=== PATIENT | female | born 1970 | race Caucasian/White ===

== ENCOUNTER 2017-08-13 10:50 | Emergency (ER) | payer BC ==
[2017-08-13 10:55] VITALS: TEMP 97.8
[2017-08-13 11:48] LABS: Basophils % (A) 0 %; Eosinophils # (A) 0.1 k/uL (0-0.7); Eosinophils % (A) 2 %; HCT 35.7 % (34.0-46.0); HGB 12.3 gm/dL (11.4-16.0); Lymphocytes # (A) 1.1 k/uL (1.0-4.8); Lymphocytes % (A) 34 %; MCHC 34.4 g/dL (31.0-37.0); MCV 96.1 fL (80.0-100.0); Mean Platelet Volume 7.5; Monocytes # (A) 0.2 k/uL (0-1.0); Monocytes % (A) 6 %; Neutrophils # (A) 1.8 k/uL (1.3-7.7); Neutrophils % (A) 56 %; Platelet Count 223 k/uL (150-450); RBC 3.71 m/uL (3.80-5.40); WBC 3.2 k/uL (3.8-10.6)
[2017-08-13] MEDS ORDERED: hydrALAZINE HCL 20 MG/ML 1 ML VIAL IVP STA (11:49)
[2017-08-13] MEDS ORDERED: LISINOPRIL-HCTZ 10-12.5 MG 1 EACH TAB PO STA (11:49)
--- NOTE | 2017-08-13 11:52 | ED ---
General Adult HPI - General Chief complaint: Chest Pain Stated complaint: Chest pain Time Seen by Provider: 08/13/17 10:58 Source: patient, RN notes reviewed, old records reviewed Mode of arrival: wheelchair Limitations: no limitations - History of Present Illness Initial comments: 46-year-old female history of hypertension presents for evaluation of left- sided chest pain. Pain begins in the front of her chest, travels to her back. She's had 5 episodes since 9 AM this morning. Each episode lasting 30 seconds to 1 minute. Pain is sharp and severe in nature. Patient has had these episodes in the past as recently as several weeks ago. She has no history of coronary artery disease. She complains of no calf tenderness or leg swelling. No abdominal pain. No nausea vomiting. No fever or cough. - Related Data Home Medications Medication Instructions Recorded Confirmed ALPRAZolam [Xanax] 0.25 mg PO HS PRN 10/05/15 08/13/17 Lisinopril-Hctz 10-12.5 mg 1 tab PO HS 08/13/17 08/13/17 [Zestoretic 10-12.5] Naproxen Sodium [Aleve] 220 mg PO DAILY PRN 08/13/17 08/13/17 Ondansetron HCl [Zofran] 8 mg PO Q8H PRN 08/13/17 08/13/17 Previous Rx's Medication Instructions Recorded Ibuprofen [Motrin] 600 mg PO Q8HR PRN #24 tab 08/13/17 Allergies Allergy/AdvReac Type Severity Reaction Status Date / Time No Known Allergies Allergy Verified 10/06/15 13:19 Review of Systems ROS Statement: Those systems with pertinent positive or pertinent negative responses have been documented in the HPI. ROS Other: All systems not noted in ROS Statement are negative. Past Medical History Past Medical History: Hypertension Additional Past Medical History / Comment(s): "heart problems" History of Any Multi-Drug Resistant Organisms: None Reported Past Surgical History: Section, Hysterectomy Past Anesthesia/Blood Transfusion Reactions: Postoperative Nausea & Vomiting ( PONV) Past Psychological History: No Psychological Hx Reported Smoking Status: Never smoker Past Alcohol Use History: Occasional Past Drug Use History: None Reported - Past Family History Mother Family Medical History: Myocardial Infarction ([place]) Additional Family Medical History / Comment(s): [place] at 49 and bypass at age 53. Brother(s) Family Medical History: Myocardial Infarction ([place]) Additional Family Medical History / Comment(s): [place] at age 29 General Exam Limitations: no limitations General appearance: alert, in no apparent distress Head exam: Present: atraumatic, normocephalic Eye exam: Present: normal appearance, PERRL ENT exam: Present: normal exam Neck exam: Present: normal inspection. Absent: tenderness, meningismus Respiratory exam: Present: normal lung sounds bilaterally. Absent: respiratory distress, wheezes, chest wall tenderness Cardiovascular Exam: Present: regular rate, normal rhythm GI/Abdominal exam: Present: soft. Absent: distended, tenderness, guarding Extremities exam: Present: normal inspection, normal capillary refill, other ( Bilateral DP pulses 2+). Absent: pedal edema Neurological exam: Present: alert, oriented X3, CN II-XII intact. Absent: motor sensory deficit Psychiatric exam: Present: normal affect, normal mood Skin exam: Present: warm, dry, intact. Absent: cyanosis, diaphoretic, erythema Course Vital Signs 08/13/17 08/13/17 08/13/17 10:54 11:20 11:55 Temperature 97.8 F Pulse Rate 84 76 Pulse Rate [ 89 Right Pulse Oximetery] Respiratory 18 18 Rate Blood Pressure 179/105 169/108 O2 Sat by Pulse 100 99 Oximetry 08/13/17 08/13/17 08/13/17 12:35 12:44 12:59 Temperature Pulse Rate 89 89 75 Pulse Rate [ Right Pulse Oximetery] Respiratory 16 18 19 Rate Blood Pressure 172/99 185/107 172/109 O2 Sat by Pulse 95 100 97 Oximetry EKG Findings - EKG Comments: EKG Findings:: EKG shows normal sinus rhythm, Q wave in leads 3 and aVF, may represent previous inferior infarct, no acute ischemic changes. No ST segment elevation or depression, ventricular rate 77, ND interval 160, QRS duration 88, QTC 427 Medical Decision Making - Medical Decision Making 46 year old female presenting with chest pain which is atypical for cardiac causes. She is mildly hypertensive on initial evaluation, she does receive CT angiography to evaluate both for pulmonary embolism and dissection. CT angiography is negative for PE or dissection, there is interstitial granulomatous changes. This finding is discussed with the patient. She will follow-up with her primary care physician and systems qa analyst regarding this finding. Laboratory studies reveal white blood cell count mildly decreased at 3.2, normal x-rays, negative troponin, normal chest x-ray. Diagnose: Chest pain, granulomatous disease of the lung - Lab Data Result diagrams: 08/13/17 11:28 08/13/17 11:28 Lab Results 08/13/17 08/13/17 08/13/17 Range/Units 11:28 11:28 11:28 WBC 3.2 L (3.8-10.6) k/uL RBC 3.71 L (3.80-5.40) m/uL Hgb 12.3 (11.4-16.0) gm/dL Hct 35.7 (34.0-46.0) % MCV 96.1 (80.0-100.0) fL MCH 33.0 (25.0-35.0) pg MCHC 34.4 (31.0-37.0) g/dL RDW 13.0 (11.5-15.5) % Plt Count 223 (150-450) k/uL Neutrophils % 56 % Lymphocytes % 34 % Monocytes % 6 % Eosinophils % 2 % Basophils % 0 % Neutrophils # 1.8 (1.3-7.7) k/uL Lymphocytes # 1.1 (1.0-4.8) k/uL Monocytes # 0.2 (0-1.0) k/uL Eosinophils # 0.1 (0-0.7) k/uL Basophils # 0.0 (0-0.2) k/uL PT (9.0-12.0) sec INR (<1.2) APTT (22.0-30.0) sec D-Dimer (<0.60) mg/L FEU Sodium 139 (137-145) mmol/L Potassium 4.3 (3.5-5.1) mmol/L Chloride 102 (98-107) mmol/L Carbon Dioxide 28 (22-30) mmol/L Anion Gap 9 mmol/L BUN 13 (7-17) mg/dL Creatinine 0.70 (0.52-1.04) mg/dL Est GFR (MDRD) Af Amer >60 (>60 ml/min/1.73 sqM) Est GFR (MDRD) Non-Af >60 (>60 ml/min/1.73 sqM) Glucose 102 H (74-99) mg/dL Calcium 9.6 (8.4-10.2) mg/dL Magnesium 1.7 (1.6-2.3) mg/dL Total Bilirubin 0.4 (0.2-1.3) mg/dL AST 38 H (14-36) U/L ALT 47 (9-52) U/L Alkaline Phosphatase 60 (38-126) U/L Total Creatine Kinase 88 (30-135) U/L CK-MB (CK-2) <0.2 (0.0-2.4) ng/mL CK-MB (CK-2) Rel Index Troponin I <0.012 (0.000-0.034) ng/mL NT-Pro-B Natriuret Pep pg/mL Total Protein 7.2 (6.3-8.2) g/dL Albumin 4.3 (3.5-5.0) g/dL Lipase 148 (23-300) U/L 08/13/17 08/13/17 Range/Units 11:28 11:28 WBC (3.8-10.6) k/uL RBC (3.80-5.40) m/uL Hgb (11.4-16.0) gm/dL Hct (34.0-46.0) % MCV (80.0-100.0) fL MCH (25.0-35.0) pg MCHC (31.0-37.0) g/dL RDW (11.5-15.5) % Plt Count (150-450) k/uL Neutrophils % % Lymphocytes % % Monocytes % % Eosinophils % % Basophils % % Neutrophils # (1.3-7.7) k/uL Lymphocytes # (1.0-4.8) k/uL Monocytes # (0-1.0) k/uL Eosinophils # (0-0.7) k/uL Basophils # (0-0.2) k/uL PT 9.9 (9.0-12.0) sec INR 1.0 (<1.2) APTT 24.2 (22.0-30.0) sec D-Dimer 0.32 (<0.60) mg/L FEU Sodium (137-145) mmol/L Potassium (3.5-5.1) mmol/L Chloride (98-107) mmol/L Carbon Dioxide (22-30) mmol/L Anion Gap mmol/L BUN (7-17) mg/dL Creatinine (0.52-1.04) mg/dL Est GFR (MDRD) Af Amer (>60 ml/min/1.73 sqM) Est GFR (MDRD) Non-Af (>60 ml/min/1.73 sqM) Glucose (74-99) mg/dL Calcium (8.4-10.2) mg/dL Magnesium (1.6-2.3) mg/dL Total Bilirubin (0.2-1.3) mg/dL AST (14-36) U/L ALT (9-52) U/L Alkaline Phosphatase (38-126) U/L Total Creatine Kinase (30-135) U/L CK-MB (CK-2) (0.0-2.4) ng/mL CK-MB (CK-2) Rel Index Troponin I (0.000-0.034) ng/mL NT-Pro-B Natriuret Pep 188 pg/mL Total Protein (6.3-8.2) g/dL Albumin (3.5-5.0) g/dL Lipase (23-300) U/L Disposition Clinical Impression: Chest pain Disposition: HOME SELF-CARE Condition: Good Instructions: Chest Pain (ED), How Your Lungs Work (ED) Prescriptions: Ibuprofen [Motrin] 600 mg PO Q8HR PRN #24 tab PRN Reason: Pain Referrals: Tim Hernández MD [Primary Care Provider] - 1-2 days Jacquelyn Ruiz MD [STAFF PHYSICIAN] - 1-2 days Time of Disposition: 13:33
[2017-08-13 12:00] LABS: ALT 47 U/L (9-52); AST 38 U/L (14-36); Albumin 4.3 g/dL (3.5-5.0); Alkaline Phosphatase 60 U/L (38-126); Anion Gap 9 mmol/L; Blood Urea Nitrogen 13 mg/dL (7-17); Calcium 9.6 mg/dL (8.4-10.2); Carbon Dioxide 28 mmol/L (22-30); Chloride 102 mmol/L (98-107); Glucose 102 mg/dL (74-99); Lipase 148 U/L (23-300); Magnesium 1.7 mg/dL (1.6-2.3); Potassium 4.3 mmol/L (3.5-5.1); Sodium 139 mmol/L (137-145); Total Bilirubin 0.4 mg/dL (0.2-1.3); Total Protein 7.2 g/dL (6.3-8.2)
[2017-08-13 12:03] LABS: D-Dimer 0.32 mg/L FEU (<0.60)
[2017-08-13 12:08] LABS: Partial Thromboplastin Time 24.2 sec (22.0-30.0); Prothrombin Time 9.9 sec (9.0-12.0)
[2017-08-13 12:09] LABS: Creatine Kinase 88 U/L (30-135)
--- NOTE | 2017-08-13 12:11 | XR ---
EXAMINATION TYPE: XR chest 2V DATE OF EXAM: 08/13/2017 COMPARISON: Prior chest x-ray 10/05/2015 HISTORY: Chest pain TECHNIQUE: Frontal and lateral views of the chest are obtained on 3 images. FINDINGS: There is no focal air space opacity, pleural effusion, or pneumothorax seen. The cardiac silhouette size is within normal limits. There are overlying cardiac leads. The osseous structures a re intact. IMPRESSION: No acute cardiopulmonary process.
[2017-08-13] MEDS ORDERED: RX INFO: IV CONTRAST WAS GIVEN 1 EACH MISC MISCELLANE PRN (12:14)
[2017-08-13 12:23] LABS: Creatine Kinase MB <0.2 ng/mL (0.0-2.4); Troponin I <0.012 ng/mL (0.000-0.034)
--- NOTE | 2017-08-13 13:18 | CT ---
EXAMINATION TYPE: CT angio chest DATE OF EXAM: 08/13/2017 COMPARISON: Chest x-ray 08/13/2017 HISTORY: Left sided chest pain with shortness of breath CT DLP: 175.5 mGycm Automated exposure control for dose reduction was used. CONTRAST: CTA scan of the thorax is performed with IV Contrast, patient injected with 100 mL of Omnipaque 350, pulmonary embolism protocol. MIP images are created and reviewed. 3D reconstructed images are creat ed on an independent workstation and reviewed. FINDINGS: LUNGS: The lungs are remarkable for some interstitial nodularity, minimal dependent atelectatic carias es are present. Nodule present on axial image 46e adjacent to right upper lobe pulmonary artery, add itional nodule present adjacent to the left pulmonary artery on axial image 52 There is no pleural ef fusion or pneumothorax seen. The tracheobronchial tree is patent. AORTA: No additional significant abnormality is seen. MEDIASTINUM: There is satisfactory enhancement of the pulmonary artery and its branches, there is no CT evidence for pulmonary embolism. There are no greater than 1 cm hilar or mediastinal lymph nodes. No pericardial effusion is seen. OTHER: No additional significant abnormality is seen. IMPRESSION: CONSIDER GRANULOMATOUS DISEASE SUCH SARCOID, FOLLOW-UP RECOMMENDED. NO EVIDENT PULMONARY EMBOLISM.
[2017-08-13 14:21] VITALS: BP 148/92; PULSE 75; RESP 16
== END 2017-08-13 14:21 | disposition home or self-care (01) ==
LOC: EC 10:50
DX: R07.9 Chest pain, unspecified (principal); I10 Essential (primary) hypertension; Z79.899 Other long term (current) drug therapy
CPT/HCPCS: 99285; 36415; 93005; 85379; 83880; 80053; 82550; 82553; 83690; 83735; 84484; 85025; 85610; 85730; 71046; 71275; Q9967

== ENCOUNTER → 2017-08-30 | Outpatient (CLI) | payer BC ==
[2017-08-30 15:30] LABS: ALT 33 U/L (9-52); AST 27 U/L (14-36); Albumin 4.4 g/dL (3.5-5.0); Alkaline Phosphatase 58 U/L (38-126); Anion Gap 8 mmol/L; Blood Urea Nitrogen 12 mg/dL (7-17); Calcium 9.4 mg/dL (8.4-10.2); Carbon Dioxide 29 mmol/L (22-30); Chloride 99 mmol/L (98-107); Glucose 103 mg/dL (74-99); Potassium 3.9 mmol/L (3.5-5.1); Sodium 136 mmol/L (137-145); Total Bilirubin 0.5 mg/dL (0.2-1.3)
== END | disposition home or self-care (01) ==
LOC: LABWHC1 14:45
PROVIDERS: ATTEND Internal Medicine Critical Care Medicine
DX: F41.9 Anxiety disorder, unspecified (principal); K90.0 Celiac disease; D86.9 Sarcoidosis, unspecified
CPT/HCPCS: 36415; 80053; 82164; 85652

== ENCOUNTER → 2020-04-11 | Outpatient (CLI) | payer BC ==
--- NOTE | 2020-04-12 11:11 | MM ---
Reason for exam: screening (asymptomatic). Last mammogram was performed 1 year and 2 months ago. History: Patient is postmenopausal. Family history of breast cancer in father at age 38. Physical Findings: A clinical breast exam by your physician is recommended on an annual basis and results should be correlated with mammographic findings. MG Screening Mammo w CAD Bilateral CC and MLO view(s) were taken. Prior study comparison: January 24, 2019, bilateral MG screening mammo w CAD. May 11, 2014, bilateral MG foundation screening mammo. The breast tissue is heterogeneously dense. This may lower the sensitivity of mammography. No significant changes when compared with prior studies. ASSESSMENT: Negative, BI-RAD 1 RECOMMENDATION: Routine screening mammogram of both breasts in 1 year.
== END | disposition home or self-care (01) ==
LOC: RADMAMWWP 12:40
PROVIDERS: ATTEND Obstetrics & Gynecology
DX: Z12.31 Encounter for screening mammogram for malignant neoplasm of breast (principal)
CPT/HCPCS: 77067

== ENCOUNTER 2020-09-13 14:57 | Emergency (ER) | payer BC ==
--- NOTE | 2020-09-13 15:20 | ED ---
General Adult HPI - General Chief complaint: Chest Pain Stated complaint: Chest Pain,Abd Pain Time Seen by Provider: 09/13/20 15:04 Source: patient Mode of arrival: ambulatory Limitations: no limitations - History of Present Illness Initial comments: Dictation was produced using TrueView dictation software. please excuse any grammatical, word or spelling errors. This patient was cared for during a federal and state declared state of emergency secondary to Covid 19 Chief Complaint: 49-year-old female past medical history of celiac disease presents to the emergency department for left upper abdominal pain History of Present Illness: 49-year-old female she presents today with acute episode of left upper quadrant abdominal pain. She had a similar episode 2 days ago that lasted for 4 hours patient states the pain is severe causing her significant distress. She denies any fever. She does complain of some nausea. She did having regular bowel movements for the last 4-5 days. She has history of celiac disease that was diagnosed several years ago. Denies any respiratory symptoms. She localizes the pain to the left upper quadrant. She states as a sharp stabbing pain without any exacerbating or mitigating factors. She has a history of section and hysterectomy. No other abdominal surgeries. She does not have a history of alcoholism. She does not report any changes in her symptoms with eating or drinking fluids. She has no history of gastritis or peptic ulcer disease. The ROS documented in this emergency department record has been reviewed and confirmed by me. Those systems with pertinent positive or negative responses have been documented in the HPI. All other systems are other negative and/or no ncontributory. PHYSICAL EXAM: General Impression: Alert and oriented x3, acute distress secondary to pain HEENT: Normocephalic atraumatic, extra-ocular movements intact, pupils equal and reactive to light bilaterally, mucous membranes moist. Cardiovascular: Heart regular rate and rhythm Chest: Able to complete full sentences, no retractions, no tachypnea Abdomen: abdomen soft, mild tenderness to palpation of the left upper quadrant, non-distended, no organomegaly Musculoskeletal: Pulses present and equal in all extremities, no peripheral edema Motor: no focal deficits noted Neurological: CN II-XII grossly intact, no focal motor or sensory deficits noted Skin: Intact with no visualized rashes Psych: Normal affect and mood ED course: 49-year-old female presents emergency department for severe acute onset left upper quadrant abdominal pain. Signs upon arrival are within acceptable limits. Patient's history of celiac disease. Previous surgeries include hysterectomy and section. EKG does not show any signs of ischemia or infarction. EKG interpretation: Ventricular rate 75, normal sinus rhythm,. Interval 156, QRS 86, QTC 433. No SC prolongation, no QTC prolongation, no ST or T-wave changes noted. Overall, this EKG is unremarkable Laboratory evaluation obtained. CBC unremarkable. Coag panel is negative. Metabolic panel is unremarkable. Urinalysis is negative. Troponin is negative. Computed tomography scan of the abdomen and pelvis shows no acute processes. Patient given GI cocktail with no significant improvement. She does however report improvement since the initial onset of her symptoms earlier today. She does still feel some lingering affects. Discussed with patient that the only concern would be that if this is cardiac cause of chest pain. She is warned that her symptoms could represent atypical presentation of acute coronary syndrome. Disposition options were discussed. Recommended the patient have second troponin 3 hours after the initial troponin to evaluate more for cardiac cause of chest pain which she reports that she would rather be discharged and return to the emergency department if possible. Point is unclear what is causing patient's symptoms. She is given GI referral. Patient is given aspirin. Patient tolerating by mouth. Patient will be discharged. - Related Data Home Medications Medication Instructions Recorded Confirmed Lisinopril-Hctz 10-12.5 mg 1 tab PO HS 08/13/17 09/13/20 [Zestoretic 10-12.5] Naproxen Sodium [Aleve] 220 mg PO DAILY PRN 08/13/17 09/13/20 Atorvastatin [Lipitor] 40 mg PO DAILY 09/13/20 09/13/20 Omeprazole [PriLOSEC] 20 mg PO DAILY 09/13/20 09/13/20 traZODone HCL [Desyrel] 50 mg PO HS PRN 09/13/20 09/13/20 Allergies Allergy/AdvReac Type Severity Reaction Status Date / Time No Known Allergies Allergy Verified 09/13/20 16:27 Review of Systems ROS Statement: Those systems with pertinent positive or pertinent negative responses have been documented in the HPI. ROS Other: All systems not noted in ROS Statement are negative. Past Medical History Past Medical History: Hypertension Additional Past Medical History / Comment(s): "heart problems" History of Any Multi-Drug Resistant Organisms: None Reported Past Surgical History: Section, Hysterectomy Past Anesthesia/Blood Transfusion Reactions: Postoperative Nausea & Vomiting (PONV) Past Psychological History: No Psychological Hx Reported Smoking Status: Never smoker Past Alcohol Use History: Occasional Past Drug Use History: None Reported - Past Family History Mother Family Medical History: Myocardial Infarction ([place]) Additional Family Medical History / Comment(s): [place] at 49 and bypass at age 53. Brother(s) Family Medical History: Myocardial Infarction ([place]) Additional Family Medical History / Comment(s): [place] at age 29 General Exam Limitations: no limitations Course Vital Signs 09/13/20 09/13/20 14:58 15:02 Temperature 98.8 F Pulse Rate 83 Respiratory 20 Rate Blood Pressure 165/100 O2 Sat by Pulse 100 Oximetry Medical Decision Making - Lab Data Result diagrams: 09/13/20 15:29 09/13/20 15:28 Lab Results 09/13/20 09/13/20 09/13/20 Range/Units 15:28 15:28 15:28 WBC (3.8-10.6) k/uL RBC (3.80-5.40) m/uL Hgb (11.4-16.0) gm/dL Hct (34.0-46.0) % MCV (80.0-100.0) fL MCH (25.0-35.0) pg MCHC (31.0-37.0) g/dL RDW (11.5-15.5) % Plt Count (150-450) k/uL MPV Neutrophils % % Lymphocytes % % Monocytes % % Eosinophils % % Basophils % % Neutrophils # (1.3-7.7) k/uL Lymphocytes # (1.0-4.8) k/uL Monocytes # (0-1.0) k/uL Eosinophils # (0-0.7) k/uL Basophils # (0-0.2) k/uL PT 10.0 (9.0-12.0) sec INR 0.9 (<1.2) APTT 24.8 (22.0-30.0) sec Sodium 134 L (137-145) mmol/L Potassium 4.4 (3.5-5.1) mmol/L Chloride 100 (98-107) mmol/L Carbon Dioxide 25 (22-30) mmol/L Anion Gap 9 mmol/L BUN 16 (7-17) mg/dL Creatinine 0.67 (0.52-1.04) mg/dL Est GFR (CKD-EPI)AfAm >90 (>60 ml/min/1.73 sqM) Est GFR (CKD-EPI)NonAf >90 (>60 ml/min/1.73 sqM) Glucose 109 H (74-99) mg/dL Calcium 9.8 (8.4-10.2) mg/dL Total Bilirubin 0.7 (0.2-1.3) mg/dL AST 43 H (14-36) U/L ALT 44 H (4-34) U/L Alkaline Phosphatase 50 (38-126) U/L Troponin I <0.012 (0.000-0.034) ng/mL Total Protein 7.8 (6.3-8.2) g/dL Albumin 4.6 (3.5-5.0) g/dL Lipase 121 (23-300) U/L Urine Color Urine Appearance (Clear) Urine pH (5.0-8.0) Ur Specific Arvin (1.001-1.035) Urine Protein (Negative) Urine Glucose (UA) (Negative) Urine Ketones (Negative) Urine Blood (Negative) Urine Nitrite (Negative) Urine Bilirubin (Negative) Urine Urobilinogen (<2.0) mg/dL Ur Leukocyte Esterase (Negative) 09/13/20 09/13/20 Range/Units 15:29 17:00 WBC 5.2 (3.8-10.6) k/uL RBC 4.23 (3.80-5.40) m/uL Hgb 13.8 (11.4-16.0) gm/dL Hct 40.8 (34.0-46.0) % MCV 96.6 (80.0-100.0) fL MCH 32.7 (25.0-35.0) pg MCHC 33.8 (31.0-37.0) g/dL RDW 12.7 (11.5-15.5) % Plt Count 197 (150-450) k/uL MPV 7.0 Neutrophils % 59 % Lymphocytes % 31 % Monocytes % 5 % Eosinophils % 3 % Basophils % 1 % Neutrophils # 3.0 (1.3-7.7) k/uL Lymphocytes # 1.6 (1.0-4.8) k/uL Monocytes # 0.3 (0-1.0) k/uL Eosinophils # 0.1 (0-0.7) k/uL Basophils # 0.0 (0-0.2) k/uL PT (9.0-12.0) sec INR (<1.2) APTT (22.0-30.0) sec Sodium (137-145) mmol/L Potassium (3.5-5.1) mmol/L Chloride (98-107) mmol/L Carbon Dioxide (22-30) mmol/L Anion Gap mmol/L BUN (7-17) mg/dL Creatinine (0.52-1.04) mg/dL Est GFR (CKD-EPI)AfAm (>60 ml/min/1.73 sqM) Est GFR (CKD-EPI)NonAf (>60 ml/min/1.73 sqM) Glucose (74-99) mg/dL Calcium (8.4-10.2) mg/dL Total Bilirubin (0.2-1.3) mg/dL AST (14-36) U/L ALT (4-34) U/L Alkaline Phosphatase (38-126) U/L Troponin I (0.000-0.034) ng/mL Total Protein (6.3-8.2) g/dL Albumin (3.5-5.0) g/dL Lipase (23-300) U/L Urine Color Light Yellow Urine Appearance Clear (Clear) Urine pH 5.5 (5.0-8.0) Ur Specific Arvin >1.050 H (1.001-1.035) Urine Protein Negative (Negative) Urine Glucose (UA) Negative (Negative) Urine Ketones Negative (Negative) Urine Blood Negative (Negative) Urine Nitrite Negative (Negative) Urine Bilirubin Negative (Negative) Urine Urobilinogen <2.0 (<2.0) mg/dL Ur Leukocyte Esterase Negative (Negative) Disposition Clinical Impression: Abdominal pain Disposition: HOME SELF-CARE Condition: Fair Instructions (If sedation given, give patient instructions): Chest Pain (ED), Abdominal Pain (ED) Is patient prescribed a controlled substance at d/c from ED?: No Referrals: Tim Hernández MD [Primary Care Provider] - 1-2 days Jade Khoury MD [STAFF PHYSICIAN] - 1-2 days Time of Disposition: 17:55
[2020-09-13 15:41] LABS: Basophils % (A) 1 %; Eosinophils # (A) 0.1 k/uL (0-0.7); Eosinophils % (A) 3 %; HCT 40.8 % (34.0-46.0); HGB 13.8 gm/dL (11.4-16.0); Lymphocytes # (A) 1.6 k/uL (1.0-4.8); Lymphocytes % (A) 31 %; MCH 32.7 pg (25.0-35.0); MCHC 33.8 g/dL (31.0-37.0); MCV 96.6 fL (80.0-100.0); Monocytes # (A) 0.3 k/uL (0-1.0); Monocytes % (A) 5 %; Neutrophils % (A) 59 %; Platelet Count 197 k/uL (150-450); RBC 4.23 m/uL (3.80-5.40); RDW 12.7 % (11.5-15.5); WBC 5.2 k/uL (3.8-10.6)
[2020-09-13 15:52] LABS: INR 0.9 (<1.2); Partial Thromboplastin Time 24.8 sec (22.0-30.0)
[2020-09-13 15:57] LABS: ALT 44 U/L (4-34); AST 43 U/L (14-36); African American GFR (CKD) >90 (>60 ml/min/1.73 sqM); Albumin 4.6 g/dL (3.5-5.0); Alkaline Phosphatase 50 U/L (38-126); Anion Gap 9 mmol/L; Blood Urea Nitrogen 16 mg/dL (7-17); Calcium 9.8 mg/dL (8.4-10.2); Carbon Dioxide 25 mmol/L (22-30); Chloride 100 mmol/L (98-107); Glucose 109 mg/dL (74-99); Lipase 121 U/L (23-300); Non-African American GFR(CKD) >90 (>60 ml/min/1.73 sqM); Sodium 134 mmol/L (137-145); Total Bilirubin 0.7 mg/dL (0.2-1.3); Total Protein 7.8 g/dL (6.3-8.2)
--- NOTE | 2020-09-13 15:58 | CT ---
EXAMINATION TYPE: CT abdomen pelvis w con DATE OF EXAM: 09/13/2020 COMPARISON: None INDICATION: Upper Abdominal pain with nausea. DLP: 842.1 mGycm, Automated exposure control for dose reduction was used. CONTRAST: 100 mL of Isovue 300. Study performed without Oral Contrast TECHNIQUE: Axial images were obtained from above the diaphragm to the pubic rami in the axial plane a t 5 mm thick sections. Reconstructed images are reviewed on the computer in the coronal plane. FINDINGS: Limited CT sections are obtained the lung bases. The lung bases are clear. CT ABDOMEN: Liver: Normal Spleen: Normal Pancreas: Normal Adrenal glands: The adrenal glands are normal. Gallbladder: Normal Kidneys: No masses are evident. No hydronephrosis is present. No cysts are present. Delayed images were obtained through the kidneys, which remain unremarkable. Aorta: Vascular calcification is within the aorta. Inferior vena cava: Normal. CT PELVIS: Loops of bowel within the abdomen and pelvis are normal. Study is without oral contrast limiting bowel evaluation. Appendix: Normal as visualized. Urinary bladder: Normal. Genitourinary structures: Uterus is not identified. Adnexal regions appear normal. Phleboliths are pr esent within the pelvis. Osseous structures: No suspicious lytic or sclerotic lesions. IMPRESSIONS: 1. No suspicious acute changes CT abdomen pelvis.
[2020-09-13 16:36] LABS: Potassium 4.4 mmol/L (3.5-5.1)
[2020-09-13] MEDS ORDERED: MAG HYDROX/AL HYDROX/SIMETH 30 ML, HYOSCYAMINE ELIXIR 10 ML, LIDOCAINE VISCOUS 2% 10 ML PO STA ×3 (16:50)
[2020-09-13 17:27] LABS: Appearance,Urine Clear (Clear); Bilirubin,Urine Negative (Negative); Blood,Urine Negative (Negative); Color,Urine Light Yellow; Glucose,Urine (UA) Negative (Negative); Ketones,Urine Negative (Negative); Leukocyte Esterase,Urine Negative (Negative); Nitrite,Urine Negative (Negative); PH, Urine 5.5 (5.0-8.0); Protein,Urine Negative (Negative); Urobilinogen,Urine <2.0 mg/dL (<2.0)
[2020-09-13 17:29] LABS: Specific Gravity,Urine >1.050 (1.001-1.035)
[2020-09-13] MEDS ORDERED: ASPIRIN 81 MG PO STA (17:54)
[2020-09-13 18:42] VITALS: BP 159/89; PULSE 71; RESP 18; TEMP 98.3
== END 2020-09-13 18:35 | disposition home or self-care (01) ==
LOC: EC 14:57
DX: R10.12 Left upper quadrant pain (principal); R11.0 Nausea; I10 Essential (primary) hypertension; Z79.899 Other long term (current) drug therapy; Z90.710 Acquired absence of both cervix and uterus
CPT/HCPCS: 36415; 93005; 80053; 83690; 84484; 85025; 85610; 85730; 81003; 74177; 99285; Q9967

== ENCOUNTER → 2021-10-01 | Outpatient (CLI) | payer BC ==
--- NOTE | 2021-10-02 14:43 | MM ---
Reason for exam: screening (asymptomatic). Last mammogram was performed 1 year and 6 months ago. History: Patient is postmenopausal. Family history of breast cancer in father at age 38. Physical Findings: A clinical breast exam by your physician is recommended on an annual basis and results should be correlated with mammographic findings. MG 3D Screening Mammo W/Cad Bilateral CC and MLO view(s) were taken. Prior study comparison: April 11, 2020, bilateral MG screening mammo w CAD. January 24, 2019, bilateral MG screening mammo w CAD. The breast tissue is heterogeneously dense. This may lower the sensitivity of mammography. No significant changes when compared with prior studies. ASSESSMENT: Benign, BI-RAD 2 RECOMMENDATION: Routine screening mammogram of both breasts in 1 year.
== END | disposition home or self-care (01) ==
LOC: RADMAMWWP 14:56
PROVIDERS: ATTEND Obstetrics & Gynecology
DX: Z12.31 Encounter for screening mammogram for malignant neoplasm of breast (principal); Z78.0 Asymptomatic menopausal state; Z80.3 Family history of malignant neoplasm of breast
CPT/HCPCS: 77063; 77067

== ENCOUNTER → 2023-07-14 | Outpatient (CLI) | payer BC ==
--- NOTE | 2023-07-15 08:19 | MM ---
Reason for Exam: Screening (asymptomatic). Last mammogram was performed 1 year(s) and 9 month(s) ago. Patient History: Menarche at age 12. First Full-Term at age 15. Hysterectomy at age 31. Postmenopausal. Father had breast cancer, age 38. Risk Values: Nathalia 5 year model risk: 0.7%. NCI Lifetime model risk: 5.6%. Prior Study Comparison: 01/24/2019 Bilateral Screening Mammogram, [facility]. 04/11/2020 Bilateral Screening Mammogram, [facility]. 10/01/2021 Bilateral Screening Mammogram, [facility]. Tissue Density: The breast tissue is heterogeneously dense. This may lower the sensitivity of mammography. Findings: Analyzed By CAD. There is no suspicious group of microcalcifications or new suspicious mass in either breast. Overall Assessment: Benign, BI-RAD 2 Management: Screening Mammogram of both breasts in 1 year. . Patient should continue monthly self-breast exams. A clinical breast exam by your physician is recommended on an annual basis. This exam should not preclude additional follow-up of suspicious palpable abnormalities. Note on Nathalia scores and lifetime risk: 1. A Nathalia score greater than 3% is considered moderate risk. If this is the case, consider specialist referral to assess eligibility for a risk reducing agent. 2. If overall lifetime risk for the development of breast cancer is 20% or higher, the patient may qualify for future screening with alternating mammogram and breast MRI. Electronically signed and approved by: Luc Easley M.D. Radiologis
== END | disposition home or self-care (01) ==
LOC: RADMAMWWP 10:50
PROVIDERS: ATTEND Family Medicine
DX: Z12.31 Encounter for screening mammogram for malignant neoplasm of breast (principal); Z80.3 Family history of malignant neoplasm of breast; Z78.0 Asymptomatic menopausal state
CPT/HCPCS: 77063; 77067

== ENCOUNTER → 2024-08-23 | Outpatient (CLI) | payer BC ==
--- NOTE | 2024-08-23 11:46 | MM ---
Reason for Exam: Screening (asymptomatic). Last mammogram was performed 1 year(s) and 1 month(s) ago. Patient History: Menarche at age 12. First Full-Term at age 15. Hysterectomy at age 31. Postmenopausal. Father had breast cancer, age 38. Risk Values: Nathalia 5 year model risk: 0.8%. NCI Lifetime model risk: 5.5%. Prior Study Comparison: 04/11/2020 Bilateral Screening Mammogram, [facility]. 10/01/2021 Bilateral Screening Mammogram, [facility]. 07/14/2023 Bilateral MG 3D screening mammo w/cad, [facility]. Tissue Density: There are scattered areas of fibroglandular density. Findings: Analyzed By CAD. There is no suspicious group of microcalcifications or new suspicious mass in either breast. Overall Assessment: Negative, BI-RAD 1 Management: Screening Mammogram of both breasts in 1 year. Patient should continue monthly self-breast exams. A clinical breast exam by your physician is recommended on an annual basis. This exam should not preclude additional follow-up of suspicious palpable abnormalities. Note on Nathalia scores and lifetime risk: 1. A Nathalia score greater than 3% is considered moderate risk. If this is the case, consider specialist referral to assess eligibility for a risk reducing agent. 2. If overall lifetime risk for the development of breast cancer is 20% or higher, the patient may qualify for future screening with alternating mammogram and breast MRI. [facility], , 08/23/2024 11:43 AM. Electronically signed and approved by: Ayden Vazquez M.D. Radiologist
== END | disposition home or self-care (01) ==
LOC: RADMAMWWP 11:18
PROVIDERS: ATTEND Obstetrics & Gynecology
DX: Z12.31 Encounter for screening mammogram for malignant neoplasm of breast (principal); Z78.0 Asymptomatic menopausal state; Z80.3 Family history of malignant neoplasm of breast; R92.323 Mammographic fibroglandular density, bilateral breasts
CPT/HCPCS: 77067

== ENCOUNTER 2025-01-11 10:26 | Emergency (ER) | payer BC ==
[2025-01-11 10:32] VITALS: TEMP 98
[2025-01-11] MEDS: DEXAMETHASONE SOD PHOSPHATE 10 MG/ML 1 ML VIAL IM STA (11:37)
[2025-01-11] MEDS: KETOROLAC 15 MG/ML 1 ML VIAL IM STA (11:38)
--- NOTE | 2025-01-11 11:40 | ED ---
ENT HPI - General Chief complaint: ENT Stated complaint: Left Ear Pain Time Seen by Provider: 01/11/25 11:14 Source: patient, RN notes reviewed Mode of arrival: ambulatory Limitations: no limitations - History of Present Illness Initial comments: This is a 54-year-old female who presents to the emergency department for left ear pain. States that it started 2 days ago. She went to urgent care and was diagnosed with an ear infection and started on amoxicillin. States that the pain is intermittent and sharp/stabbing. Denies any radiation of pain. Denies any difficulty with her hearing. MD complaint: ear pain - Related Data Home Medications Medication Instructions Recorded Confirmed Lisinopril-Hctz 10-12.5 mg 1 tab PO HS 08/13/17 09/13/20 [Zestoretic 10-12.5] Naproxen Sodium [Aleve] 220 mg PO DAILY PRN 08/13/17 09/13/20 Atorvastatin [Lipitor] 40 mg PO DAILY 09/13/20 09/13/20 Omeprazole [PriLOSEC] 20 mg PO DAILY 09/13/20 09/13/20 traZODone HCL [Desyrel] 50 mg PO HS PRN 09/13/20 09/13/20 Previous Rx's Medication Instructions Recorded Cetirizine HCl/Pseudoephedrine 1 each PO BID #30 tab 01/11/25 [Cetirizine HCl/Pseudoephedrine ER 5-120 mg Tab] Ketorolac [Toradol] 10 mg PO Q6HR PRN #15 tab 01/11/25 Allergies Allergy/AdvReac Type Severity Reaction Status Date / Time No Known Allergies Allergy Verified 01/11/25 10:31 Review of Systems ROS Statement: Those systems with pertinent positive or pertinent negative responses have been documented in the HPI. ROS Other: All systems not noted in ROS Statement are negative. Past Medical History Past Medical History: Hypertension Additional Past Medical History / Comment(s): "heart problems" History of Any Multi-Drug Resistant Organisms: None Reported Past Surgical History: Section, Hysterectomy Past Anesthesia/Blood Transfusion Reactions: Postoperative Nausea & Vomiting (PONV) Past Psychological History: No Psychological Hx Reported Smoking Status: Never smoker Past Alcohol Use History: Occasional Past Drug Use History: None Reported - Past Family History Mother Family Medical History: Myocardial Infarction ([place]) Additional Family Medical History / Comment(s): [place] at 49 and bypass at age 53. Brother(s) Family Medical History: Myocardial Infarction ([place]) Additional Family Medical History / Comment(s): [place] at age 29 General Exam Limitations: no limitations General appearance: alert, in no apparent distress Head exam: Present: atraumatic, normocephalic, normal inspection ENT exam: Present: other (No tenderness to palpation of the left tragus or pinna. No bulging or erythema of the left TM. No canal erythema.) Respiratory exam: Present: normal lung sounds bilaterally. Absent: respiratory distress, wheezes, rales, rhonchi, stridor Cardiovascular Exam: Present: regular rate, normal rhythm Neurological exam: Present: alert, oriented X3, CN II-XII intact Psychiatric exam: Present: normal affect, normal mood Skin exam: Present: warm, dry, intact, normal color. Absent: rash Course Vital Signs 01/11/25 01/11/25 10:28 12:26 Temperature 98.0 F Pulse Rate 77 78 Respiratory 18 12 Rate Blood Pressure 164/96 151/97 O2 Sat by Pulse 99 100 Oximetry Medical Decision Making - Medical Decision Making This is a 54 year old female who presents to the emergency department for left ear pain. Was pt. sent in by a medical professional or institution? @ -No Did you speak to anyone other than the patient for history? @ -No Did you review nursing and triage notes? @ -Yes, and I agree, it is accurate with regards to the patient's symptoms. Were old charts reviewed? @ -No Differential Diagnosis? @ -Otitis media, otitis externa, eustachian tube dysfunction, allergic rhinitis, barotrauma, bullous myringitis, this is not meant to be an all- inclusive list. EKG interpreted by me (3pts min.)? @ -Not obtained X-rays interpreted by me (1pt min.)? @ -Not obtained CT interpreted by me (1pt min.)? @ -Not obtained U/S interpreted by me (1pt. min.)? @ -Not obtained What testing was considered but not performed? (CT, X-rays, U/S, labs)? Why? @ -None What meds were considered but not given? Why? @ -None Did you discuss the management of the patient with other professionals? @ -No Did you reconcile home meds? @ -No Was smoking cessation discussed for >3mins.? @ -No Was critical care preformed (if so, how long)? @ -No Were there social determinants of health that impacted care today? How? (Homelessness, low income, unemployed, alcoholism, drug addiction, transportation, low edu. Level, literacy, decrease access to med. care, residential, rehab)? @ -No Was there de-escalation of care discussed even if they declined? (Discuss DNR or withdrawal of care, Hospice)? @ -No What co-morbidities impacted this encounter? (DM, HTN, Smoking, COPD, CAD, Cancer, CVA, Hep., AIDS, mental health diagnosis, sleep apnea, morbid obesity)? @ -None Was patient admitted / discharged? @ -Discharged. Physical examination not suggestive of infection. She may have had some fluid behind the TM, however exam was otherwise unremarkable. Advised that she can continue the amoxicillin if she would like, however it may not offer any benefit. Cetirizinepseudoephedrine prescribed along with Toradol for further management. Also advised Flonase nasal spray, which she just started using yesterday and following up with her PCP for reevaluation. Patient discharged home in stable condition. Case discussed with ED attending Dr. Ramos. Return precautions reviewed in depth, the patient is instructed to return to the emergency department with any new, worsening, or concerning symptoms. Patient verbalized understanding. Undiagnosed new problem with uncertain prognosis? @ -None Drug Therapy requiring intensive monitoring for toxicity (Heparin, Nitro, Insulin, Cardizem)? @ -None Were any procedures done? @ -None Diagnosis/symptom? @ -Left ear pain Acute, or Chronic, or Acute on Chronic? @ -Acute Uncomplicated (without systemic symptoms) or Complicated (systemic symptoms)? @ -Uncomplicated Side effects of treatment? @ -None Exacerbation, Progression, or Severe Exacerbation] @ -Not applicable Poses a threat to life or bodily function? @ -No Disposition Clinical Impression: Left ear pain Disposition: HOME SELF-CARE Instructions (If sedation given, give patient instructions): Earache (ED) Additional Instructions: Return to the emergency department with any new, worsening, or concerning symptoms. Take the cetirizine/pseudoephedrine twice daily for the next 1 to 2 weeks or until your symptoms resolve. Take the Toradol with Tylenol as needed for pain relief. If you choose to take the Toradol, do not take any other anti- inflammatories such as ibuprofen, take one or the other. Continue taking the antibiotic as prescribed and using the Flonase nasal spray. Follow-up with your primary care provider for reevaluation. Prescriptions: Cetirizine HCl/Pseudoephedrine [Cetirizine HCl/Pseudoephedrine ER 5-120 mg Tab] 1 each PO BID #30 tab Ketorolac [Toradol] 10 mg PO Q6HR PRN #15 tab PRN Reason: Pain Is patient prescribed a controlled substance at d/c from ED?: No Referrals: Tim Hernández MD [Primary Care Provider] - 1-2 days Time of Disposition: 11:40
[2025-01-11] MEDS: LORATADINE-PSEUDOEPH 5-120 MG 1 EACH TAB.ER.12H PO STA (12:24)
[2025-01-11] MEDS: ACET/COD 300 MG/30 MG STARTER PACK 6 TAB BTL PO STA (12:25)
[2025-01-11 12:30] VITALS: BP 151/97; PULSE 78; RESP 12
== END 2025-01-11 12:31 | disposition home or self-care (01) ==
LOC: EC 10:26
DX: H92.02 Otalgia, left ear (principal)
CPT/HCPCS: 99282; 96372 ×2; J1100; J1885

== ENCOUNTER 2025-01-28 05:17 | Emergency (ER) | payer BC ==
[2025-01-28 05:30] VITALS: TEMP 97.8
[2025-01-28 05:55] LABS: Basophils # (A) 0.02 10*3/uL (0.00-0.10); Basophils % (A) 0.3 %; Eosinophils # (A) 0.11 10*3/uL (0.04-0.35); Eosinophils % (A) 1.6 %; HCT 37.1 % (37.2-46.3); HGB 12.9 g/dL (12.0-15.0); Lymphocytes # (A) 1.13 10*3/uL (0.90-5.00); Lymphocytes % (A) 16.9 %; MCH 32.9 pg (27.0-32.0); MCHC 34.8 g/dL (32.0-37.0); MCV 94.6 fL (80.0-97.0); Mean Platelet Volume 9.1 fL (9.5-12.2); Monocytes # (A) 0.46 10*3/uL (0.20-1.00); Monocytes % (A) 6.9 %; Neutrophils # (A) 4.94 10*3/uL (1.80-7.70); Platelet Count 189 10*3/uL (140-440); RBC 3.92 10*6/uL (4.10-5.20); RDW 11.9 % (11.5-14.5); WBC 6.68 10*3/uL (4.50-10.00)
[2025-01-28 06:09] LABS: ALT 39 U/L (4-34); AST 29 U/L (14-36); African American GFR (CKD) >90 (>60 ml/min/1.73 sqM); Albumin 4.8 g/dL (3.5-5.0); Alkaline Phosphatase 68 U/L (38-126); Amylase 45 U/L (30-110); Anion Gap 8 mmol/L; Blood Urea Nitrogen 10 mg/dL (7-17); Calcium 9.3 mg/dL (8.4-10.2); Carbon Dioxide 27 mmol/L (22-30); Chloride 101 mmol/L (98-107); Glucose 127 mg/dL (74-99); Lipase 83 U/L (23-300); Non-African American GFR(CKD) >90 (>60 ml/min/1.73 sqM); Potassium 4.2 mmol/L (3.5-5.1); Sodium 136 mmol/L (137-145); Total Bilirubin 0.7 mg/dL (0.2-1.3); Total Protein 7.4 g/dL (6.3-8.2)
--- NOTE | 2025-01-28 06:21 | ED ---
Abdominal Pain HPI - General Chief Complaint: Abdominal Pain Stated Complaint: Abd Pain Time Seen by Provider: 01/28/25 06:20 Source: patient, RN notes reviewed Mode of arrival: ambulatory Limitations: no limitations - History of Present Illness Initial Comments: 54-year-old presented the ER for evaluation of lower abdominal pain. Patient reports over the past couple of days she has been experiencing a lower abdominal discomfort. She states it is a sharp cramping pain. She states it is mainly located on the left side of her abdomen and radiates down into her pelvis. Patient also reports frequent urination. She denies any dysuria or hematuria. Patient states her abdomen appears distended. She admits to nausea but denies any vomiting or known fevers. Patient does admit to chills. Denies any diarrhea but does state have been "spotty". She denies any hematochezia or melena. She is taken [id number] ibuprofen and Tylenol along with a leftover Tylenol 3 without relief of symptoms. Patient has also tried cranberry supplements as she believes she was having a UTI. She denies any abnormal vaginal bleeding or discharge. Patient reports history of section no other prior abdominal surgeries. Denies history of ulcerative colitis, Crohn's disease or diverticulitis. Patient states she has had a colonoscopy in the past which she believes was "normal". Patient denies any chest pain, shortness of breath, dizziness, lightheadedness or other complaints - Related Data Home Medications Medication Instructions Recorded Confirmed Lisinopril-Hctz 10-12.5 mg 1 tab PO HS 08/13/17 09/13/20 [Zestoretic 10-12.5] Naproxen Sodium [Aleve] 220 mg PO DAILY PRN 08/13/17 09/13/20 Atorvastatin [Lipitor] 40 mg PO DAILY 09/13/20 09/13/20 Omeprazole [PriLOSEC] 20 mg PO DAILY 09/13/20 09/13/20 traZODone HCL [Desyrel] 50 mg PO HS PRN 09/13/20 09/13/20 Previous Rx's Medication Instructions Recorded Cetirizine HCl/Pseudoephedrine 1 each PO BID #30 tab 01/11/25 [Cetirizine HCl/Pseudoephedrine ER 5-120 mg Tab] Ketorolac [Toradol] 10 mg PO Q6HR PRN #15 tab 01/11/25 Sulfamethox-Tmp 800-160Mg [Bactrim 1 each PO Q12HR #20 tab 01/28/25 Ds] Allergies Allergy/AdvReac Type Severity Reaction Status Date / Time No Known Allergies Allergy Verified 01/28/25 05:30 Review of Systems ROS Statement: Those systems with pertinent positive or pertinent negative responses have been documented in the HPI. ROS Other: All systems not noted in ROS Statement are negative. Past Medical History Past Medical History: Hypertension Additional Past Medical History / Comment(s): "heart problems" History of Any Multi-Drug Resistant Organisms: None Reported Past Surgical History: Section, Hysterectomy Past Anesthesia/Blood Transfusion Reactions: Postoperative Nausea & Vomiting (PONV) Past Psychological History: No Psychological Hx Reported Smoking Status: Never smoker Past Alcohol Use History: Occasional Past Drug Use History: None Reported - Past Family History Mother Family Medical History: Myocardial Infarction ([place]) Additional Family Medical History / Comment(s): [place] at 49 and bypass at age 53. Brother(s) Family Medical History: Myocardial Infarction ([place]) Additional Family Medical History / Comment(s): [place] at age 29 General Exam Limitations: no limitations General appearance: alert, in no apparent distress Respiratory exam: Present: normal lung sounds bilaterally. Absent: respiratory distress, wheezes, rales, rhonchi, stridor Cardiovascular Exam: Present: regular rate, normal rhythm, normal heart sounds. Absent: systolic murmur, diastolic murmur, rubs, gallop, clicks GI/Abdominal exam: Present: soft, tenderness (LLQ), normal bowel sounds Extremities exam: Present: normal inspection, full ROM, normal capillary refill. Absent: tenderness, pedal edema, joint swelling, calf tenderness Back exam: Present: normal inspection Neurological exam: Present: alert, oriented X3, CN II-XII intact Skin exam: Present: warm, dry, intact, normal color. Absent: rash Course Vital Signs 01/28/25 01/28/25 01/28/25 05:28 07:39 09:24 Temperature 97.8 F Pulse Rate 94 89 84 Respiratory 18 17 18 Rate Blood Pressure 169/97 178/101 132/82 O2 Sat by Pulse 100 99 99 Oximetry - Reevaluation(s) Reevaluation #1: 06/29/25 08:57 Patient reevaluated, vital signs stable. No signs of acute distress patient reporting improvement of discomfort after IV medications. Patient educated on laboratory and urinalysis results. CT abdomen pelvis ordered. Medical Decision Making - Medical Decision Making Was pt. sent in by a medical professional or institution ([facility]ney, [employer], urgent care, hospital, or long-term...) When possible be specific @ -No Did you speak to anyone other than the patient for history (EMS, parent, family, police, friend...)? What history was obtained from this source @ -No Did you review nursing and triage notes (agree or disagree)? Why? @ -I reviewed and agree with nursing and triage notes Were old charts reviewed (outside hosp., previous admission, EMS record, old EKG, old radiological studies, urgent care reports/EKG's, long-term records)? Report findings @ -No old charts were reviewed Differential Diagnosis (chest pain, altered mental status, abdominal pain women, abdominal pain men, vaginal bleeding, weakness, fever, dyspnea, syncope, headache, dizziness, GI bleed, back pain, seizure, CVA, palpatations, mental health, musculoskeletal)? @ -Differential Abdominal Pain Men:Appendicitis, cholecystitis, diverticulosis, ischemic bowel, pancreatitis, hepatitis, UTI, gastroenteritis, AAA, incarcerated hernia, bowel obstruction, constipation, inflammatory bowel, hepatitis, peptic ulcer disease, splenic infarction, perforated viscus, testicular torsion, this is not meant to be an all-inclusive list EKG interpreted by me (3pts min.). @ -As above X-rays interpreted by me (1pt min.). @ -None done CT interpreted by me (1pt min.). @ -CT abdomen pelvis showed mild thickening of the urothelium of bilateral ureters. Mild thickening of bladder wall. No other acute intra-abdominal process. Normal appendix. No obstructive uropathy. U/S interpreted by me (1pt. min.). @ -None done What testing was considered but not performed or refused? (CT, X-rays, U/S, labs)? Why? @ -None What meds were considered but not given or refused? Why? @ -None Did you discuss the management of the patient with other professionals (professionals i.e. [employer] [facility]ney, [employer] FINISHER, lab, RT, psych nurse, social problems specialist, migratory worker, teacher, correctional officer, supervisor case loading)? Give summary @ -No Was smoking cessation discussed for >3mins.? @ -No Was critical care preformed (if so, how long)? @ -No Were there social determinants of health that impacted care today? How? (Homelessness, low income, unemployed, alcoholism, drug addiction, trans portation, low edu. Level, literacy, decrease access to med. care, [facility], rehab)? @ -No Was there de-escalation of care discussed even if they declined (Discuss DNR or withdrawal of care, Hospice)? DNR status @ -No What co-morbidities impacted this encounter? (DM, HTN, Smoking, COPD, CAD, Cancer, CVA, ARF, Chemo, Hep., AIDS, mental health diagnosis, sleep apnea, morbid obesity)? @ -None Was patient admitted / discharged? Hospital course, mention meds given and route, prescriptions, significant lab abnormalities, going to OR and other pertinent info. @ -Discharge. 54 old female presented ER for evaluation of abdominal pain. Workup initiated in triage giving limited bed availability. Vital signs stable. Upon patient rooming and my evaluation, patient resting comfortably on s tretcher no signs of acute distress. Laboratory studies obtained unimpressive. Urinalysis concerning of infection with positive nitrates and greater than 182 WBCs. Urine sent for culture. CT abdomen pelvis showing mild thickening of bladder wall and urothelium of bilateral ureters. No obstructive uropathy or other acute intra-abdominal process. Normal appendix. Patient provided with symptomatic control with IV fluids, Toradol and Zofran, with improvement. Patient will be started on Bactrim and provided 1 g IV Rocephin prior to discharge for treatment of UTI. Patient educated on today's findings and is agreeable with discharge at this time. I advised close follow-up with PCP. Strict return parameters discussed. Patient discharged stable condition. Patient verbally expressed understanding and agreed with care plan. Case discussed with ED attending, Dr. Peoples. Undiagnosed new problem with uncertain prognosis? @ -No Drug Therapy requiring intensive monitoring for toxicity (Heparin, Nitro, Insulin, Cardizem)? @ -No Were any procedures done? @ -No Diagnosis/symptom? @ -UTI Acute, or Chronic, or Acute on Chronic? @ -Acute Uncomplicated (without systemic symptoms) or Complicated (systemic symptoms)? @ -Uncomplicated Side effects of treatment? @ -No Exacerbation, Progression, or Severe Exacerbation? @ -No Poses a threat to life or bodily function? How? (Chest pain, [place], [place], pneumonia, PE, COPD, DKA, ARF, appy, cholecystitis, CVA, Diverticulitis, Homicidal, Suicidal, threat to staff... and all critical care pts) @ -No - Lab Data Result diagrams: 01/28/25 05:45 01/28/25 05:45 Lab Results 01/28/25 01/28/25 01/28/25 Range/Units 05:45 05:45 05:45 WBC 6.68 (4.50-10.00) 10*3/uL RBC 3.92 L (4.10-5.20) 10*6/uL Hgb 12.9 (12.0-15.0) g/dL Hct 37.1 L (37.2-46.3) % MCV 94.6 (80.0-97.0) fL MCH 32.9 H (27.0-32.0) pg MCHC 34.8 (32.0-37.0) g/dL Plt Count 189 (140-440) 10*3/uL MPV 9.1 L (9.5-12.2) fL Immature Gran % (Auto) 0.3 % Neutrophils % 74.0 % Lymphocytes % 16.9 % Monocytes % 6.9 % Eosinophils % 1.6 % Basophils % 0.3 % Immature Gran # 0.02 (0.00-0.04) 10*3/uL Neutrophils # 4.94 (1.80-7.70) 10*3/uL Lymphocytes # 1.13 (0.90-5.00) 10*3/uL Monocytes # 0.46 (0.20-1.00) 10*3/uL Eosinophils # 0.11 (0.04-0.35) 10*3/uL Basophils # 0.02 (0.00-0.10) 10*3/uL Sodium 136 L (137-145) mmol/L Potassium 4.2 (3.5-5.1) mmol/L Chloride 101 (98-107) mmol/L Carbon Dioxide 27 (22-30) mmol/L Anion Gap 8 mmol/L BUN 10 (7-17) mg/dL Creatinine 0.56 (0.52-1.04) mg/dL Est GFR (CKD-EPI)AfAm >90 (>60 ml/min/1.73 sqM) Est GFR (CKD-EPI)NonAf >90 (>60 ml/min/1.73 sqM) Glucose 127 H (74-99) mg/dL Plasma Lactic Acid Kingsley 0.9 (0.7-2.0) mmol/L Calcium 9.3 (8.4-10.2) mg/dL Total Bilirubin 0.7 (0.2-1.3) mg/dL AST 29 (14-36) U/L ALT 39 H (4-34) U/L Alkaline Phosphatase 68 (38-126) U/L Total Protein 7.4 (6.3-8.2) g/dL Albumin 4.8 (3.5-5.0) g/dL Amylase 45 (30-110) U/L Lipase 83 (23-300) U/L Urine Color Urine Appearance (Clear) Urine pH (5.0-8.0) Ur Specific Benicia (1.001-1.035) Urine Protein (Negative) Urine Glucose (UA) (Negative) Urine Ketones (Negative) Urine Blood (Negative) Urine Nitrite (Negative) Urine Bilirubin (Negative) Urine Urobilinogen (<2.0) mg/dL Ur Leukocyte Esterase (Negative) Urine RBC (0-5) /hpf Urine WBC (0-5) /hpf Ur Squamous Epith Cells (0-4) /hpf Urine Mucus (None) /hpf /29/ Range/Units 05:52 WBC (4.50-10.00) 10*3/uL RBC (4.10-5.20) 10*6/uL Hgb (12.0-15.0) g/dL Hct (37.2-46.3) % MCV (80.0-97.0) fL MCH (27.0-32.0) pg MCHC (32.0-37.0) g/dL Plt Count (140-440) 10*3/uL MPV (9.5-12.2) fL Immature Gran % (Auto) % Neutrophils % % Lymphocytes % % Monocytes % % Eosinophils % % Basophils % % Immature Gran # (0.00-0.04) 10*3/uL Neutrophils # (1.80-7.70) 10*3/uL Lymphocytes # (0.90-5.00) 10*3/uL Monocytes # (0.20-1.00) 10*3/uL Eosinophils # (0.04-0.35) 10*3/uL Basophils # (0.00-0.10) 10*3/uL Sodium (137-145) mmol/L Potassium (3.5-5.1) mmol/L Chloride (98-107) mmol/L Carbon Dioxide (22-30) mmol/L Anion Gap mmol/L BUN (7-17) mg/dL Creatinine (0.52-1.04) mg/dL Est GFR (CKD-EPI)AfAm (>60 ml/min/1.73 sqM) Est GFR (CKD-EPI)NonAf (>60 ml/min/1.73 sqM) Glucose (74-99) mg/dL Plasma Lactic Acid Kingsley (0.7-2.0) mmol/L Calcium (8.4-10.2) mg/dL Total Bilirubin (0.2-1.3) mg/dL AST (14-36) U/L ALT (4-34) U/L Alkaline Phosphatase (38-126) U/L Total Protein (6.3-8.2) g/dL Albumin (3.5-5.0) g/dL Amylase (30-110) U/L Lipase (23-300) U/L Urine Color Light Yellow Urine Appearance Cloudy H (Clear) Urine pH 6.0 (5.0-8.0) Ur Specific [place] 1.017 (1.001-1.035) Urine Protein 1+ H (Negative) Urine Glucose (UA) Negative (Negative) Urine Ketones 2+ H (Negative) Urine Blood Moderate H (Negative) Urine Nitrite Positive H (Negative) Urine Bilirubin Negative (Negative) Urine Urobilinogen <2.0 (<2.0) mg/dL Ur Leukocyte Esterase Large H (Negative) Urine RBC 26 H (0-5) /hpf Urine WBC >182 H (0-5) /hpf Ur Squamous Epith Cells 9 H (0-4) /hpf Urine Mucus Rare H (None) /hpf - Radiology Data Radiology results: report reviewed, image reviewed Disposition Clinical Impression: UTI (urinary tract infection) Disposition: HOME SELF-CARE Condition: Stable Instructions (If sedation given, give patient instructions): Urinary Tract Infection in Women (DC) Additional Instructions: Follow-up with PCP to ensure resolution of infection. Take antibiotics as prescribed. You may take [id number] Profen and Tylenol for pain control. Return to the ER for any new or worsening concerns Prescriptions: Sulfamethox-Tmp 800-160Mg [Bactrim Ds] 1 each PO Q12HR #20 tab Is patient prescribed a controlled substance at d/c from ED?: No Referrals: Tim Hernández MD [Primary Care Provider] - 1-2 days Time of Disposition: 09:47
[2025-01-28] MEDS: ONDANSETRON 4 MG/2 ML VIAL IVP STA (07:38)
[2025-01-28] MEDS: SODIUM CHLORIDE 0.9% 1,000 ML IV ONE (07:38)
[2025-01-28] MEDS: KETOROLAC 15 MG/ML 1 ML VIAL IVP STA (07:38)
[2025-01-28 08:41] LABS: Appearance,Urine Cloudy (Clear); Bilirubin,Urine Negative (Negative); Blood,Urine Moderate (Negative); Color,Urine Light Yellow; Glucose,Urine (UA) Negative (Negative); Ketones,Urine 2+ (Negative); Leukocyte Esterase,Urine Large (Negative); Mucus,Urine Rare /hpf; Nitrite,Urine Positive (Negative); Protein,Urine 1+ (Negative); RBC,Urine 26 /hpf (0-5); Specific Gravity,Urine 1.017 (1.001-1.035); Squamous Epithelial Cell,Urine 9 /hpf (0-4); Urobilinogen,Urine <2.0 mg/dL (<2.0); WBC,Urine >182 /hpf (0-5)
[2025-01-28 09:25] VITALS: BP 132/82; PULSE 84; RESP 18
--- NOTE | 2025-01-28 09:34 | CT ---
EXAMINATION TYPE: CT abdomen pelvis w con DATE OF EXAM: 01/28/2025 9:20 AM COMPARISON: 09/13/2020. CLINICAL INDICATION: Female, 54 years old with history of lower abd pain; lower abd pain TECHNIQUE: Axial CT abdomen pelvis w con;Sagittal and coronal reformats were created on a separate w orkstation. Contrast used:100 mL of Isovue 300 with IV Contrast, (none if empty) Oral contrast used: without Oral Contrast (none if empty) CT DLP: 687.5 mGycm, Automated exposure control for dose reduction was used. FINDINGS: LOWER CHEST: Unremarkable ABDOMEN LIVER: Unremarkable GALLBLADDER AND BILE DUCTS: Unremarkable. PANCREAS: Unremarkable. SPLEEN: Unremarkable. ADRENAL GLANDS: Unremarkable. KIDNEYS AND URETERS: No evidence of hydronephrosis or obstructing renal calculus. The ureters are unr emarkable. The remaining of the urothelium of the bilateral ureters. PELVIS BLADDER: Incompletely distended with mild diffuse wall thickening. No evidence for wall thickening or mass given limitations of exam. REPRODUCTIVE: The uterus is surgically absent. ABDOMEN & PELVIS STOMACH AND BOWEL: No evidence of bowel obstruction. The appendix is normal. PERITONEUM/RETROPERITONEUM: No evidence of pneumoperitoneum or free fluid. VASCULATURE: No evidence of aortic aneurysm. MUSCULOSKELETAL: No acute osseous abnormalities LYMPH NODES: No gross evidence for lymphadenopathy. SOFT TISSUE/ABDOMINAL WALL: Small fat-containing umbilical hernia. IMPRESSION: 1. Mild thickening of the urothelium of the bilateral ureters correlate for ascending infection. Mil d thickening of the present. Urinalysis for cystitis 2. No other acute abdominal process visualized. The appendix is normal. No obstructive uropathy. [facility], , 01/28/2025 9:31 AM
[2025-01-28] MEDS: cefTRIAXone IN SWFI 1,000 MG/10 ML SYRINGE IVP STA (09:50)
== END 2025-01-28 09:57 | disposition home or self-care (01) ==
LOC: EC 05:17
DX: N39.0 Urinary tract infection, site not specified (principal)
CPT/HCPCS: 36415; 80053; 82150; 83605; 83690; 85025; 81001; 87086; 74177; 99284; 96374; 96375; 96361; J2405; J0696; J1885; Q9967